=== PATIENT | male | born 1950 | race Caucasian/White ===

== ENCOUNTER 2023-06-28 10:20 | Outpatient (CLI) | payer MEDICARE, OTHER ==
--- NOTE | 2023-06-28 11:03 | Sleep Patient Instructions ---
Sleep Center Visit Summary - Patient Visit Information Reason for Visit: Initial consult for evaluation of sleep disordered breathing and other sleep issues. - Patient Instructions Instructions Attached: Sleep Study Additional Instructions: You will be completing a sleep study, either an in-lab polysomnography (PSG) or home sleep study (HST). You will follow-up in the sleep care office after the sleep study is completed to hear the results and talk about therapy, if needed. You will be called by our office staff to schedule this appointment, but you may contact us with any questions. - Clinic Information Contact: [facility] [address] [place] [address] [email or web address] T: [phone]
--- NOTE | 2023-06-28 11:10 | SLEEP CARE CONSULTATION ---
Information from patient questionnaire entered by Adeola Alvarenga. I have reviewed and concur with the information entered by Adeola Alvarenga. This document represents the service I personally performed and the decisions made by me, Archana Cid ARNP. History of Present Illness Service Date and Time: 06/28/2023 1020 Reason for Visit: New patient Chief Complaint: reports: Insomnia, Unrefreshed sleep, Excessive daytime sleepiness, Fatigue Date of Onset: 1-1.5YRS Usual bedtime: 930-10PM Time it takes to fall asleep: 10-20MINS Snores at night: Yes (single, snores occasionally) Observed to quit breathing while asleep: No Sleeps alone due to snoring: No Number of times waking at night: 2-5 Reasons for waking at night: reports: Bathroom, Other (UNKNOWN). denies: Choking, Snoring, Gasping for air Toss, Turn, or Twitch while sleeping: Yes (occasional jerk awake with falling dream) Recalls having dreams: Yes Usually gets out of bed at: 830-9AM Feels refreshed in the morning: No Morning headache: Yes (2-3 times a month; go awake quickly; coffee helps) Sleepy or fatigued during the day: Yes Ever fallen asleep while driving: No Takes day naps: Yes (when sits down in recliner, usually unintentional; about 1 hr) Dreams during day naps: No Prior sleep studies: No Additional HPI information: I had the pleasure of seeing WILMAR SMITH today regarding the possibility of him having a sleep disorder. His current complaints are excessive daytime sleepiness, fatigue and unrefreshed sleep. He was sent here to evaluated causes for his daytime fatigue. He states that he goes to sleep in 10-20 minutes and will wake up a few times a night. He is able to go back to sleep without a problem. He does not wake up feeling refreshed. He is tired during the day and if he sits down in his recliner he can fall asleep. If he stays busy he will not nod off. He says he is single and has no bed partner to tell him if he snores but he has had others occasionally tell him he snores lightly. - Parasomnia Symptoms Ever been unable to move upon waking from sleep: No Walks in sleep: No (YES WHEN YOUNG) Talks in sleep: No Ever acted out dreams in sleep: No Ever felt weak in the knees when startled or emotional: Yes (just twitchy, has not fallen to ground) Bothered by creepy, crawly, restless sensations in legs: Yes (legs twitches when in bed, not a regular thing) Problems with memory or concentration: Yes (memory, age related he feels; gets distracted easy) Subjective Initial [place] Sleepiness Scale score: 10 (06/09/23) Past Medical History Past Medical History: reports: Hypertension, Depression, GERD, Other (Prostate CA, 2004) Social History The patient's occupation is a RE. Patient is Single and lives in . Have you smoked in the past 12 months: No Alcohol use: Yes Alcohol amount and frequency: 1-3 GLASSES WINE 2-3X YR Caffeine use: Yes Caffeine amount and frequency: 1-2 CUPS PER DAY Family History Family history of sleep disordered breathing: Yes Family Hx Sleep Apnea: Father: Snoring, Sibling: Snoring Allergies and Home Medications Known drug allergies: Yes ( LISTED) Drug allergies reviewed: Yes Home medication list reviewed: Yes (as listed) Allergy and home medication list: Allergies gabapentin Allergy (Verified 06/28/23 10:26) Home Medications Amlodipine Besylate [Norvasc] See Rx Instructions .ROUTE .COMPLEX 06/28/23 [History] Ascorbic Acid [Vitamin C] See Rx Instructions .ROUTE .COMPLEX 06/28/23 [History] Aspirin [Vazalore] See Rx Instructions .ROUTE .COMPLEX 06/28/23 [History] Atorvastatin Calcium See Rx Instructions .ROUTE .COMPLEX 06/28/23 [History] Calcium Carb, Citrate/Vit D3 [Citracal-D3 ER 600 mg-12.5 Mcg] See Rx Instructions .ROUTE .COMPLEX 06/28/23 [History] Cholecalciferol (Vitamin D3) [Vitamin D3] See Rx Instructions .ROUTE .COMPLEX 06/28/23 [History] Citalopram [CeleXA] See Rx Instructions .ROUTE .COMPLEX 06/28/23 [History] Collagen,Hydrolyz/Ascorbate Ca [Collagen-Vit C 1,000-10 mg Tab] See Rx Instructions .ROUTE .COMPLEX 06/28/23 [History] Esomeprazole Magnesium [Nexium 24Hr] See Rx Instructions .ROUTE .COMPLEX 06/28/23 [History] Fexofenadine HCl [Bharati Hives] See Rx Instructions .ROUTE .COMPLEX 06/28/23 [History] Fluticasone Propionate See Rx Instructions .ROUTE .COMPLEX 06/28/23 [History] Krill/Om-3/Dha/Epa/Phospho/Ast [Krill Oil 500 mg Softgel] See Rx Instructions .ROUTE .COMPLEX 06/28/23 [History] Losartan Potassium See Rx Instructions .ROUTE .COMPLEX 06/28/23 [History] Magnesium Oxide [Magnesium] See Rx Instructions .ROUTE .COMPLEX 06/28/23 [History] Mecobalamin [B12 Active] See Rx Instructions .ROUTE .COMPLEX 06/28/23 [History] Multivit-Minerals/Folic Acid [Men's Multivitamin Gummies] See Rx Instructions .ROUTE .COMPLEX 06/28/23 [History] Mv-Mn/Om3/Dha/Epa/Fish/Lut/Ariadna [Ocuvite Adult 50 Plus Softgel] See Rx Instructions .ROUTE .COMPLEX 06/28/23 [History] Power Phenols See Rx Instructions .ROUTE .COMPLEX 06/28/23 [History] Ubidecarenone [Co Q-10] See Rx Instructions .ROUTE .COMPLEX 06/28/23 [History] Vitamin B Complex Vit C No.3 [B Complex with Vitamin C] See Rx Instructions .ROUTE .COMPLEX 06/28/23 [History] buPROPion [Wellbutrin Sr] See Rx Instructions .ROUTE .COMPLEX 06/28/23 [History] hydroCHLOROthiazide [Hydrodiuril] See Rx Instructions .ROUTE .COMPLEX 06/28/23 [History] Review of Systems Weight gain over past 5 years: 15 Cardiovascular: reports: high blood pressure Respiratory: reports: sputum production Gastrointestinal: reports: heartburn, diarrhea Urinary: reports: incontinence Neurological: denies: headaches, head trauma Psychiatric: reports: depression Ear/Nose/Throat: reports: nasal congestion, sinus problems, tonsillectomy, wisdom teeth removed. denies: injury to nose Endocrine: reports: sluggishness Musculoskeletal: reports: joint pain, neck pain, back pain, joint swelling, muscle pain or cramping Immunologic: reports: sneezing Physical Exam Vital signs obtained and entered by: ADEOLA Rhoades MA Blood Pressure: 132/90 (LEFT ARM) Cuff size: regular Heart Rate: 61 O2 Saturation: 95 Height: 5 ft 8 in Weight: 204 lb 6.4 oz Body Mass Index: 31.1 BMI Classification: Obese Neck circumference: 17.5 Mouth and throat: narrow oropharynx Soft palate: long Hard palate: normal Uvula: normal Uvula visualization: 25% Mallampati Class III Tongue: enlarged in size with teeth varma on lateral edges Tonsils: absent bilaterally Neck: normal w/o lymphadenopathy or thyromegaly Heart: regular rate and rhythm, murmur Lungs: clear bilaterally Impression and Plan 1. Suspected Obstructive Sleep Apnea-Hypopnea Syndrome, as suggested by a history of irregular snoring, unrefreshed sleep, cognitive impairment, and excessive daytime sleepiness. Narrow oropharynx and obesity are common predisposing factors for obstructive sleep apnea-hypopnea syndrome. I recommend proceeding to polysomnography to confirm the diagnosis and to assess severity. If the patient has significant sleep disordered breathing, a manual CPAP titration study will also be performed to find the optimal treatment pressure. I informed the patient of what the sleep studies involve and after some discussion, obtained agreement to proceed. The pathophysiology of obstructive sleep apnea-hypopnea syndrome was discussed with the patient and health risks of cardiovascular and cerebrovascular disease if not treated. Risks of drowsy driving discussed in detail and patient advised to avoid long distance driving and to pull through hooker at the first sign of drowsiness. Patient agreed to plan. * Schedule polysomnography +- manual CPAP titration study and return in 1-2 weeks after the study to discuss result and initiate therapy. * Avoid long distance driving or driving when feeling sleepy. * Avoid alcohol, sedative and muscle relaxant around bedtime. * Attempt to lose weight. * Review instructions provided by trained office staff on how to prepare for the sleep study. * Return for follow-up after sleep study completed. Counseling Topics: Weight loss health impact Plan: PSG Visit Type: In Office Time Spent with Patient (minutes): 41 Provider Statement: I spent 100% of the Face to Face Visit with the patient with greater than 50% spent counseling the patient and coordination of care.
[2023-06-28 11:16] VITALS: BP 132/90; O2SAT 95
== END 2023-06-28 10:21 | disposition home or self-care (01) ==
LOC: SC 10:20
PROVIDERS: ATTEND Nurse Practitioner Family
DX: G47.10 Hypersomnia, unspecified (principal); R06.83 Snoring; G47.8 Other sleep disorders; R41.89 Other symptoms and signs involving cognitive functions and awareness; R53.83 Other fatigue; E66.9 Obesity, unspecified; Z68.31 Body mass index [BMI] 31.0-31.9, adult
CPT/HCPCS: 99203; G0463; 99212

== ENCOUNTER 2023-07-10 19:32 | Outpatient (CLI) | payer MEDICARE, OTHER | END 2023-07-10 19:33 | disposition home or self-care (01) | LOC: SC 19:32 | PROVIDERS: ATTEND Nurse Practitioner Family | DX: G47.31 Primary central sleep apnea (principal); G47.61 Periodic limb movement disorder; I10 Essential (primary) hypertension; F32.A Depression, unspecified | CPT/HCPCS: 95810 ==

== ENCOUNTER 2023-08-01 13:57 | Outpatient (CLI) | payer MEDICARE, OTHER ==
--- NOTE | 2023-08-01 14:28 | Sleep Patient Instructions ---
Sleep Center Visit Summary - Patient Visit Information Reason for Visit: Sleep study follow-up - Patient Instructions Additional Instructions: You will be completing a titration sleep study in our sleep lab where you will be sleeping with the CPAP machine on and we will be adjusting your pressures to find your optimal pressure settings. Once we have your results back, we will call you and schedule a follow up to go over the results. You will be called by our office staff to schedule your follow up, but you may contact us with any questions or issue as needed. - Clinic Information Contact: [facility] [address] [place] [address] [email or web address] T: [phone]
--- NOTE | 2023-08-01 14:30 | SLEEP CARE CONSULTATION ---
Information from patient questionnaire entered by Adeola Alvarenga. I have reviewed and concur with the information entered by Adeola Alvarenga. This document represents the service I personally performed and the decisions made by , Archana Cid ARNP. History of Present Illness Service Date and Time: 08/01/2023 1357 Initial [place] Sleepiness Scale score: 10 (06/09/23) Current [place] Sleepiness Scale score: 10 Additional HPI information: WILMAR SMITH returns for follow up and results of the recently performed polysomnography. The sleep study showed severe central sleep apnea with an average AHI of 44.4 and Kaushal-Ashraf breathing and gary oxygen saturation of 83%. He had severe PLMs that did not contribute to sleep fragmentation. I explained the pathophysiology behind obstructive sleep apnea. We then spent quite a bit of time discussing different treatment options. For mild obstructive sleep apnea, surgery and oral appliance are alternatives to nasal CPAP therapy but in moderate or severe cases, nasal CPAP is the most effective and reliable treatment. Kaushal-Ashraf respiration, or periodic respiration, involves an atypical pattern of breathing. It consists of cycles of deep breathing followed by shallow breathing. Kaushal-Ashraf breathing can be a sign of lung or circulatory problems. I reviewed the impact of weight changes on sleep apnea and strongly recommended losing weight. After some discussion, the patient opted to go with the nasal CPAP therapy. A manual titration study will be orderedto find optimal pressure with office adjustments. Patient counseled not drink alcohol less than 4 hours before be dtime as it can increase snoring and apnea. Patient was cautioned about risks of drowsy driving until sleepiness symptoms resolve. Patient denies drowsy driving. Sleep Study - Results Type of Sleep Study: Polysomnography (COMPLETED 07/10/23) Prior sleep studies: No Polysomnography/Home Sleep Study results: IMPRESSION: The quality of the study is good. The patient had slightly reduced sleep efficiency due to frequent awakenings during the night. The sleep architecture was abnormal for sleep fragmentation and reduced amount of time spent in REM and slow wave sleep (N3). Respiratory monitoring showed severe central sleep apnea and Kaushal-Ashraf respiration (AHI = 44.4) associated with frequent arousals, oxyhemoglobin desaturation and mild hypoxia (gary oxygen saturation of 83%). The respiratory events occurred predominantly during supine sleep (supine AHI = 69.2; non-supine = 13.05). Snore was light to moderate in intensity. There was severe periodic leg movement of sleep, not contributing to the sleep fragmentation. Cardiac rhythm was normal sinus rhythm with occasional premature ventricular contractions. No abnormal behavior (parasomnia) observed during the night. Allergies and Home Medications Known drug allergies: Yes (as listed) Drug allergies reviewed: Yes Home medication list reviewed: Yes (1000 mg Tylenol; 600 mg Advil every 8 hours; Cyclobenzaprine 5 mg) Allergy and home medication list: Allergies gabapentin Allergy (Verified 06/28/23 10:26) Review of Systems Review of systems same as previous: No (FALLJuly 2023) Physical Exam Vital signs obtained and entered by: ADEOLA Rhoades MA Blood Pressure: 149/85 (RIGHT ARM) Cuff size: regular Heart Rate: 80 O2 Saturation: 96 Height: 5 ft 8 in Weight: 203 lb 6.4 oz Body Mass Index: 30.9 BMI Classification: Obese Impression and Plan 1. Central Sleep Apnea-Hypopnea Syndrome, severe, with Kaushal-Ashraf breathing and lowest oxygen saturation of 83%. Obviously this is the cause of the patients symptoms of unrefreshed sleep, and excessive daytime sleepiness. Positive pressure therapy could benefit hypertension, depression and gastric reflux. As mentioned above, the patient will be started on nasal autoCPAP therapy. A manual titration study will be completed to find optimal treatment pressure with office adjustments. Compliance guidelines also reviewed. Because the apnea is more severe supine, I instructed to avoid sleeping supine using pillow positioning until able to start CPAP use. 2. Hypoxemia, mild, with a gary oxygen saturation of 83% and 9.9 minutes spent under 90%. The baseline oxygen saturation was normal with an average oxygen saturation of 92%. 3. Periodic limb movement, severe, that did not fragment patients sleep. Periodic limb movement of sleep (PLMS) is characterized by episodes of repetitive limb movements that occur during sleep and usually involve the lower limbs. The etiology is unknown. Sleep hygiene methods can also improve sleep as well as lifestyle changes such as regular exercise. Patient was advised that no treatment is needed at this time. If symptoms increase, then further evaluation is indicated. 4. Obesity, unspecified. Currently patients BMI is 30.9. Obesity increases the risk of apnea, CPAP pressure requirements and overall health risks especially cardiovascular and diabetes. Thus patient is advised to lose weight. * Titration study * Attempt to lose weight. * Avoid alcohol consumption near bedtime. * Avoid supine sleep until using CPAP. * The patient is again cautioned about driving until sleepiness completely resolves. * Return one month after CPAP obtained. I will assess response to therapy and compliance at that time. Counseling Topics: Sleeping position, Weight loss health impact Follow up with Sleep Care in: other (after titration study) Plan: Titration study Visit Type: In Office Time Spent with Patient (minutes): 25 Provider Statement: I spent 100% of the Face to Face Visit with the patient with greater than 50% spent counseling the patient and coordination of care.
[2023-08-01 14:38] VITALS: BP 149/85; O2SAT 96
== END 2023-08-01 13:58 | disposition home or self-care (01) ==
LOC: SC 13:57
PROVIDERS: ATTEND Nurse Practitioner Family
DX: G47.31 Primary central sleep apnea (principal); G47.61 Periodic limb movement disorder; E66.9 Obesity, unspecified; Z68.30 Body mass index [BMI] 30.0-30.9, adult
CPT/HCPCS: 99213; G0463; 99212

== ENCOUNTER 2023-08-21 19:35 | Outpatient (CLI) | payer MEDICARE, OTHER | END 2023-08-21 19:36 | disposition home or self-care (01) | LOC: SC 19:35 | PROVIDERS: ATTEND Nurse Practitioner Family | DX: G47.31 Primary central sleep apnea (principal); G47.61 Periodic limb movement disorder | CPT/HCPCS: 95811 ==

== ENCOUNTER 2023-09-12 09:22 | Outpatient (CLI) | payer MEDICARE, OTHER ==
--- NOTE | 2023-09-12 09:58 | Sleep Patient Instructions ---
Sleep Center Visit Summary - Patient Visit Information Reason for Visit: Titration study follow-up - Patient Instructions Instructions Attached: CPAP Additional Instructions: You are being started on CPAP therapy with pressure setting at 5 cmH2O. You will need to call the sleep care office to set up your follow up once you have your CPAP machine to check compliance and response to therapy at that time. You may call the office with any concerns about pressure feeling too low or too much for adjustment, if needed. You should contact DME supplier for any questions or concerns about mask or equipment. Please call office to schedule a follow up appointment in the sleep care office one month after obtaining new device. - Clinic Information Contact: [facility] [address] [place] [address] [email or web address] T: [phone]
--- NOTE | 2023-09-12 10:01 | SLEEP CARE CONSULTATION ---
Information from patient questionnaire entered by Adeola Alvarenga. I have reviewed and concur with the information entered by Adeola Alvarenga. This document represents the service I personally performed and the decisions made by , Archana Cid ARNP. History of Present Illness Service Date and Time: 09/12/2023921 Initial [place] Sleepiness Scale score: 10 (06/09/23) Current [place] Sleepiness Scale score: 7 (09/11/23) Additional HPI information: WILMAR SMITH returns for follow up of a manual CPAP titration study performed on 08/21/23. Previous study done on 07/10/23 showed severe central sleep apnea with AHI 44.4 and Kaushal-Ashraf breathing. The patient was informed of the following polysomnography findings: CPAP was initiated at 5 cmH2O and titrated up to CPAP at 6 cmH2O. CPAP at 5 cmH2O appeared to be optimal (AHI of 1.0 per hour on the pressure). There was supine REM sleep on the pressure. Oxygen saturation was normal throughout the night. The patient appeared to have tolerated positive airway pressure therapy fairly well. CPAP therapy is, therefore, recommended at that pressure setting. AutoCPAP set between 4 and 6 cmH20 was also noted to be appropriate. I explained how CPAP machine works and what to expect when using the machine. Using CPAP every night in order to get used to it was emphasized. Patient advised to put CPAP mask on before getting into bed so as not to fall asleep without CPAP. To assist acclimation to CPAP use, it could also be used for a short time during day while reading or watching TV. The patient was instructed to call the CPAP supplier to discuss any mechanical problem that may occur. If the mask given is uncomfortable or is difficult to keep on through the night even with adjustment, contact the CPAP supplier as many will replace with another mask style if notified before 30 days. If snoring or perceives is not getting enough air or too much air from the machine, notify this office. Patient counseled not drink alcohol less than 4 hours before bedtime as it can increase snoring and apnea. Patient was cautioned about risks of drowsy driving until sleepiness symptoms resolve. Patient denies drowsy driving. Sleep Study - Results Type of Sleep Study: Polysomnography (COMPLETED 07/10/23 TITRATION COMPLETED 08/21/23) Prior sleep studies: No Polysomnography/Home Sleep Study results: IMPRESSION: The quality of the study is good. CPAP was initiated at 5 cmH2O and titrated up to CPAP at 6 cmH2O. CPAP at 5 cmH2O appeared to be optimal (AHI of 1.0 per hour on the pressure). There was supine REM sleep on the pressure. Oxygen saturation was normal throughout the night. The patient appeared to have tolerated positive airway pressure therapy fairly well. The patients sleep efficiency was reduced due to several prolonged awakenings during the night. The sleep architecture was abnormal for sleep fragmentation and reduced amount of time spent in REM and slow wave sleep (N3). There was severe periodic leg movement of sleep contributing to the sleep fragmentation. Cardiac rhythm was sinus rhythm with frequent premature atrial contractions, occasionally in bigeminy and triplets. No abnormal behavior (parasomnia) observed during the night. CONCLUSIONS and RECOMMENDATIONS: 1. Central sleep apnea with Kaushal-Ashraf respiration (ICD-10 G47.31), severe (AHI was 44.4), adequately controlled with low CPAP at 5 cmH2O. CPAP therapy is, therefore, recommended at the pressure setting. AutoCPAP set between 4 and 6 cmH20 is also appropriate. Mask used was a [employer] Eson 2 nasal mask size large With BMI of 30.9 Kg/M2 , weight loss is also recommended. 2. Periodic leg movement of sleep (ICD G47.61), severe, treatment may be indicated. Clinical correlation advised. Allergies and Home Medications Known drug allergies: Yes (as listed) Drug allergies reviewed: Yes Home medication list reviewed: Yes (stopped citalopram) Allergy and home medication list: Allergies gabapentin Allergy (Verified 09/07/23 13:44) Review of Systems Review of systems same as previous: Yes (NO CHANGE) Physical Exam Vital signs obtained and entered by: ADEOLA Rhoades MA Blood Pressure: 139/75 (RIGHT ARM) Cuff size: regular Heart Rate: 64 O2 Saturation: 98 Height: 5 ft 8 in Weight: 201 lb 3.2 oz Body Mass Index: 30.6 BMI Classification: Obese Impression and Plan 1. Central Sleep Apnea-Hypopnea Syndrome, severe, with Kaushal-Ashraf breathing. Patient returns to office after titration study to initiate CPAP therapy. Positive pressure therapy could benefit hypertension, depression and gastric reflux. Patient says he noticed an improvement of how he felt, rested, the day after the titration study. He is enthused about starting the CPAP. The patient will be started on nasal autoCPAP therapy with pressure set at 5 cmH2O. Compliance guidelines also reviewed. A copy of compliance guidelines will be given for reference at check out. Because the apnea is more severe supine, I instructed to avoid sleeping supine using pillow positioning until able to start CPAP use. 2. Periodic limb movement, severe, that did contribute to fragmentation of the patients sleep. Periodic limb movement of sleep (PLMS) is characterized by episodes of repetitive limb movements that occur during sleep and usually involve the lower limbs. The etiology is unknown. Sleep hygiene methods can also improve sleep as well as lifestyle changes such as regular exercise. Patient was advised to follow up with primary provider for futher evaluation as needed at this time. 3. Obesity, unspecified. Currently patients BMI is 30.6. Obesity increases the risk of apnea, CPAP pressure requirements and overall health risks especially cardiovascular and diabetes. Thus patient is advised to lose weight. * Nasal auto CPAP therapy, pressure at 5 cm H2O. * Follow up with PCP for severe PLMs as needed * Attempt to lose weight. * Avoid alcohol consumption near bedtime. * Avoid supine sleep until using CPAP. * The patient is again cautioned about driving until sleepiness completely resolves. * Return one month after CPAP obtained. I will assess response to therapy and compliance at that time. Counseling Topics: Weight loss health impact Prescriptions: Auto CPAP Plan: CPAP compliance followup Visit Type: In Office Time Spent with Patient (minutes): 26 Provider Statement: I spent 100% of the Face to Face Visit with the patient with greater than 50% spent counseling the patient and coordination of care.
[2023-09-12 10:07] VITALS: BP 139/75; O2SAT 98
== END 2023-09-12 09:23 | disposition home or self-care (01) ==
LOC: SC 09:22
PROVIDERS: ATTEND Nurse Practitioner Family
DX: G47.31 Primary central sleep apnea (principal); G47.61 Periodic limb movement disorder; E66.9 Obesity, unspecified; Z68.30 Body mass index [BMI] 30.0-30.9, adult
CPT/HCPCS: 99213; G0463; 99212

== ENCOUNTER 2023-11-24 11:24 | Outpatient (CLI) | payer MEDICARE, OTHER ==
--- NOTE | 2023-11-24 11:52 | Sleep Patient Instructions ---
Sleep Center Visit Summary - Patient Visit Information Reason for Visit: First compliance follow-up for CPAP therapy - Patient Instructions Additional Instructions: You were here for follow up of CPAP therapy. You will be continued on CPAP therapy with pressure at 5 cmH2O. You should follow up with sleep care in 1-2 months. You may contact us sooner for any questions or concerns. - Clinic Information Contact: [facility] [address] [place] [id number] [email or web address] T: [phone]
--- NOTE | 2023-11-24 11:57 | SLEEP CARE CONSULTATION ---
Information from patient questionnaire entered by Adeola Alvarenga. I have reviewed and concur with the information entered by Adeola Alvarenga. This document represents the service I personally performed and the decisions made by , Archana Cid ARNP. History of Present Illness Service Date and Time: 11/24/2023 112 Previous diagnosis: Severe, Central Sleep Apnea-Hypopnea Syndrome AHI: 44.4 (on 07/10/23) Reason for follow up: first compliance Equipment type: CPAP (RESMED Airsense 11, SET UP 10/05/23) Equipment obtained from: Other ([facility]; getting supplies) Mask style: Nasal (over the nose) Mask brand: [employer] (Eson 2) Backup mask available: No Last cushion change: 2-3 weeks Prior sleep studies: No Type of Sleep Study: Polysomnography (COMPLETED 07/10/23 TITRATION COMPLETED 08/21/23) HPI additional information: WILMAR SMITH was diagnosed to have severe, AHI 44.4, central sleep apnea- hypopnea syndrome and returned today for CPAP therapy first compliance follow- up. Sleep Study - Results Type of Sleep Study: Polysomnography (COMPLETED 07/10/23 TITRATION COMPLETED 08/21/23) Prior sleep studies: No CPAP Compliance Data - Data Reviewed with Patient Average duration of nightly device use: 5 HRS 59 MINS Compliance rate %: 93 (10/05/23-11/03/23; last 30 days 97%) Current pressure setting (cmH2O): 5 Average residual AHI: 5.6 (3.7 in last 30 days) Central apnea: 1.8 Obstructive apnea: 2.3 Hypopnea: 0.7 Average large leak: 9.6 L/min Subjective Missed days of use due to: reports: mask issues, other (heat) Patient concerns: reports: mask discomfort (at times, changed mask cushion size), dry mouth, nose, throat, other (need to repostion). denies: aerophagia, air blowing in eyes, mask leak noise, condensation in mask/hose, nasal congestion, epistaxis Observed to snore while using device: No Current pressure setting perceived as: comfortable On therapy, patient: reports: sleeping better, awakening more refreshed, being more awake and alert during the day, more rested overall. denies: drowsiness while driving Initial [place] Sleepiness Scale score: 10 (01/26/24) Current [place] Sleepiness Scale score: 5 Allergies and Home Medications Known drug allergies: Yes (as listed) Drug allergies reviewed: Yes Home medication list reviewed: Yes (no changes) Allergy and home medication list: Allergies gabapentin Allergy (Verified 11/22/23 13:20) Review of Systems Review of systems same as previous: Yes (no changes) Physical Exam Vital signs obtained and entered by: Archana Barba NP Blood Pressure: 123/74 Cuff size: regular (right arm) Heart Rate: 70 O2 Saturation: 98 Height: 5 ft 8 in Weight: 197 lb 6.4 oz Body Mass Index: 29.9 BMI Classification: Overweight Impression and Plan 1. Central Sleep Apnea-Hypopnea Syndrome, severe, with good treatment compliance and good apnea control with minimal elevation of residual AHI. On CPAP therapy, the patient has better sleep quality and is more rested overall. His initial data showed an elevated residual AHI at 5.7, but in the last 30 days his AHI has reduced to 3.7. There is no pressure adjustment needed today. Patient has significant improvement of his sleep apnea and is satisfied with current CPAP therapy results. He has no significant issues with using his CPAP mask. He has changed the size of the cushion states he will probably go down to discuss his mask sizing or change his DME supplier. Patient's apnea severity and rationale for treatment to reduce apnea, improve sleep quality and reduce cardiovascular and cerebrovascular events was reviewed. I also reviewed the benefit of consistent device use of CPAP for hypertension, gastric reflux, depression. 2. Overweight, unspecified. Currently patients BMI is 29.9. Obesity increases the risk of apnea, CPAP pressure requirements and overall health risks especially cardiovascular and diabetes. Thus patient is advised to lose weight. * Continue CPAP pressure at 5 cmH2O * Notify me if snoring with mask or feeling that the pressure is too much or too little * Attempt to lose weight * Call this office if any problems using CPAP * Return for follow up in 1-2 months, or sooner if concerns arise Counseling Topics: Spare mask, Weight loss health impact Follow up with Sleep Care in: 1-2 months Visit Type: In Office Time Spent with Patient (minutes): 23 Provider Statement: I spent 100% of the Face to Face Visit with the patient with greater than 50% spent counseling the patient and coordination of care.
[2023-11-24 12:00] VITALS: BP 123/74; O2SAT 98
== END 2023-11-24 11:25 | disposition home or self-care (01) ==
LOC: SC 11:24
PROVIDERS: ATTEND Nurse Practitioner Family
DX: G47.31 Primary central sleep apnea (principal); E66.3 Overweight; Z68.29 Body mass index [BMI] 29.0-29.9, adult
CPT/HCPCS: 99213; G0463; 99212

== ENCOUNTER 2024-01-05 10:22 | Outpatient (CLI) | payer MEDICARE, OTHER ==
--- NOTE | 2024-01-05 10:48 | Sleep Patient Instructions ---
Sleep Center Visit Summary - Patient Visit Information Reason for Visit: 6-week follow-up for PAP therapy - Patient Instructions Additional Instructions: You were here for follow up of CPAP therapy. You will be continued on CPAP therapy with pressure at 5 cmH2O. You should follow up with sleep care in 3 months. You may contact us sooner for any questions or concerns. - Clinic Information Contact: [facility] [address] [place] [address] [email or web address] T: [phone]
[2024-01-05 10:53] VITALS: BP 142/76; O2SAT 98
--- NOTE | 2024-01-05 10:53 | SLEEP CARE CONSULTATION ---
Information from patient questionnaire entered by Giorgi Alvarenga. I have reviewed and concur with the information entered by Giorgi Alvarenga. This document represents the service I personally performed and the decisions made by , Archana Cid ARNP. History of Present Illness Service Date and Time: 01/05/2024 102 Previous diagnosis: Severe, Central Sleep Apnea-Hypopnea Syndrome AHI: 44.4 (07/10/23) Reason for follow up: other (6WEEK F/U) Equipment type: CPAP (RESMED Airsense 11 S/U 10/05/23) Equipment obtained from: Other ([facility]) Mask style: Nasal (over the nose) Backup mask available: No Last cushion change: over 6 weeks Prior sleep studies: No Type of Sleep Study: Polysomnography (COMPLETED 07/10/23 TITRATION COMPLETED 08/21/23) HPI additional information: WILMAR SMITH was diagnosed to have severe, AHI 44.4, central sleep apnea- hypopnea syndrome and returned today for CPAP therapy six week follow-up. Sleep Study - Results Type of Sleep Study: Polysomnography (COMPLETED 07/10/23 TITRATION COMPLETED 08/21/23) Prior sleep studies: No CPAP Compliance Data - Data Reviewed with Patient Average duration of nightly device use: 5 HRS 32 MINS Compliance rate %: 89 (11/19/23-01/01/24; 43/44 day used) Current pressure setting (cmH2O): 5 Average residual AHI: 4.1 (0.5 unknown) Central apnea: 1.5 Obstructive apnea: 1.4 Hypopnea: 0.6 Average large leak: 9.5 L/min Subjective Missed days of use due to: reports: other (fell asleep before turning machine on but with mask on) Patient concerns: reports: mask leak noise. denies: aerophagia, mask discomfort, air blowing in eyes, condensation in mask/hose, nasal congestion, dry mouth, nose, throat, epistaxis Observed to snore while using device: No Current pressure setting perceived as: comfortable On therapy, patient: reports: sleeping better, awakening more refreshed, being more awake and alert during the day, more rested overall. denies: drowsiness while driving Initial [place] Sleepiness Scale score: 10 (06/09/23) Current [place] Sleepiness Scale score: 3 (01/05/24) Allergies and Home Medications Known drug allergies: Yes (as listed) Drug allergies reviewed: Yes Home medication list reviewed: Yes (no changes) Allergy and home medication list: Allergies gabapentin Allergy (Verified 01/05/24 10:27) Review of Systems Review of systems same as previous: Yes (no change) Physical Exam Vital signs obtained and entered by: GIORGI Rhoades MA Blood Pressure: 142/76 (left arm) Cuff size: regular Heart Rate: 59 O2 Saturation: 98 Height: 5 ft 8 in Weight: 196 lb 12.8 oz Weight change since last visit: 1 lb loss Body Mass Index: 29.9 BMI Classification: Overweight Impression and Plan 1. Central Sleep Apnea-Hypopnea Syndrome, severe, with good treatment compliance and good apnea control. On CPAP therapy, the patient has better sleep quality and is more rested overall. He has significant improvement of his sleep apnea and is satisfied with current CPAP therapy. Patient denies problems with oral dryness, nasal congestion, epistaxis, skin irritation or aerophagia. He says his mask seems to be leaking more and the cushion moving more. I advised him to reach out to his DME supplier for more mask cushions because his cushion needs to be changed out. He voiced understanding. Patient's apnea severity and rationale for treatment to reduce apnea, improve sleep quality and reduce cardiovascular and cerebrovascular events was reviewed. I also reviewed the benefit of consistent device use of CPAP for hypertension, gastric reflux, depression. 2. Overweight, unspecified. Currently patients BMI is 29.9. Obesity increases the risk of apnea, CPAP pressure requirements and overall health risks especially cardiovascular and diabetes. Thus patient is advised to continue to try to lose weight. * Continue CPAP pressure at 5 cmH2O * Notify me if snoring with mask or feeling that the pressure is too much or too little * Continue to try to lose weight * Call this office if any problems using CPAP * Return for follow up in 3 months, or sooner if concerns arise Counseling Topics: Spare mask, Weight loss health impact Follow up with Sleep Care in: 3 months Visit Type: In Office Time Spent with Patient (minutes): 20 Provider Statement: I spent 100% of the Face to Face Visit with the patient with greater than 50% spent counseling the patient and coordination of care.
== END 2024-01-05 10:23 | disposition home or self-care (01) ==
LOC: SC 10:22
PROVIDERS: ATTEND Nurse Practitioner Family
DX: G47.31 Primary central sleep apnea (principal); E66.3 Overweight; Z68.29 Body mass index [BMI] 29.0-29.9, adult
CPT/HCPCS: 99213; G0463; 99212